=== PATIENT | female | born 1990 | race Caucasian/White ===

== ENCOUNTER 2021-12-26 09:40 | Emergency (ER) | payer OTHER ==
[2021-12-26 09:55] VITALS: BMI 28.3
[2021-12-26 10:52] LABS: EPI CELLS 17 /uL (0-25.1); HYALINE CASTS 1 /uL (0-3.1); PH,URINE 7.5 (5.0-8.0); URINE APPEARANCE TURBID; URINE BACTERIA 220 /uL (0-1359); URINE BILIRUBIN NEGATIVE (NEGATIVE); URINE COLOR YELLOW; URINE GLUCOSE (UA) NEGATIVE (NEGATIVE); URINE KETONE NEGATIVE (NEGATIVE); URINE LEUK ESTERASE NEGATIVE (NEGATIVE); URINE NITRITE NEGATIVE (NEGATIVE); URINE PROTEIN NEGATIVE (NEGATIVE); URINE RBC 9 /uL (0-23.9); URINE UROBILINOGEN 0.2 mg/dL (0.2-1.0); URINE WBC 9 /uL (0-25.8)
[2021-12-26 11:08] VITALS: BP 112/74; PULSE 83; TEMP 99
== END 2021-12-26 11:34 | disposition home or self-care (01) ==
LOC: JER 09:40
DX: O26.852 Spotting complicating pregnancy, second trimester (principal); Z3A.17 17 weeks gestation of pregnancy
CPT/HCPCS: 76815; 81003; 84703; 87086; 99284-25

== ENCOUNTER 2022-03-04 15:55 | Observation (INO) | payer OTHER ==
[2022-03-04] MEDS: DEXTROSE 5%-LACTATED RINGERS 1,000 ML IV SCH (19:30)
[2022-03-04] MEDS: ACETAMINOPHEN 325 MG TABLET (FP) PO PRN (20:00)
[2022-03-04 20:10] LABS: PH,URINE 6.5 (5.0-8.0); URINE APPEARANCE CLEAR; URINE BILIRUBIN NEGATIVE (NEGATIVE); URINE COLOR YELLOW; URINE GLUCOSE (UA) NEGATIVE (NEGATIVE); URINE KETONE NEGATIVE (NEGATIVE); URINE LEUK ESTERASE NEGATIVE (NEGATIVE); URINE NITRITE NEGATIVE (NEGATIVE); URINE PROTEIN NEGATIVE (NEGATIVE); URINE UROBILINOGEN 0.2 mg/dL (0.2-1.0)
[2022-03-04] MEDS ORDERED: ACETAMINOPHEN 325 MG TABLET (FP) ONE (20:37)
[2022-03-04 20:52] LABS: BASO % 0.2 % (0-2.0); EOS % 1.2 % (0-4.5); HEMOGLOBIN 11.2 GM/dL (10.7-15.3); LYMPH % 20.2 % (8-40); MCH 31.8 pg (25.7-33.7); MEAN CELL VOLUME 93.6 fl (80-96); MEAN PLT VOLUME 6.9 fl (7.5-11.1); MONO % 6.1 % (3.8-10.2); NEUT % 72.3 % (42.8-82.8); PLATELET COUNT 208 10^3/uL (134-434); RBC 3.53 M/mm3 (3.60-5.2); RDW 13.4 % (11.6-15.6)
[2022-03-04 20:56] LABS: INR 0.98 (0.83-1.09); PROTHROMBIN TIME (PATIENT) 11.3 SEC (9.7-13.0)
[2022-03-04 21:06] LABS: CALCIUM 8.2 mg/dL (8.5-10.1)
[2022-03-04 21:07] LABS: ALBUMIN 2.7 g/dl (3.4-5.0); BLOOD UREA NITROGEN 7.2 mg/dL (7-18)
[2022-03-04 21:10] LABS: CREATININE 0.5 mg/dL (0.55-1.3)
[2022-03-04 21:11] LABS: TOT PROT 5.7 g/dl (6.4-8.2)
[2022-03-04 21:12] LABS: BILIRUBIN,TOTAL 0.3 mg/dL (0.2-1)
[2022-03-04 23:57] VITALS: BMI 30.2
[2022-03-05] MEDS: ACETAMINOPHEN 325 MG TABLET (FP) PO PRN (03:15)
[2022-03-05] MEDS ORDERED: ACETAMINOPHEN 325 MG TABLET (FP) ONE ×2 (03:17→11:17)
[2022-03-05] MEDS: DEXTROSE 5%-LACTATED RINGERS 1,000 ML IV SCH (03:55)
[2022-03-05 05:14] VITALS: TEMP 97.8
[2022-03-05 09:01] VITALS: BP 128/81; PULSE 72
== END 2022-03-05 12:10 | disposition home or self-care (01) ==
LOC: JER 15:55 → JLDR 23:00
PROVIDERS: ADMIT Obstetrics & Gynecology Maternal & Fetal Medicine; ATTEND Obstetrics & Gynecology Maternal & Fetal Medicine
PROC: 3E0337Z Introduction of Electrolytic and Water Balance Substance into Peripheral Vein, Percutaneous Approach (ICD-10-PCS; principal; 2022-03-04)
DX: O36.8120 Decreased fetal movements, second trimester, not applicable or unspecified (principal); V48.0XXA Car driver injured in noncollision transport accident in nontraffic accident, initial encounter; Y93.89 Activity, other specified; Y92.410 Unspecified street and highway as the place of occurrence of the external cause; Z3A.26 26 weeks gestation of pregnancy; I10 Essential (primary) hypertension
CPT/HCPCS: 36415; 76801-TC; 80053; 81003; 85025; 85610; 86850; 86900; 86901; 99285-25; C9803-CS; G0378; U0003; U0005

== ENCOUNTER 2022-05-31 11:07 | Inpatient (IN) | payer OTHER ==
[2022-05-31 13:28] LABS: BASO % 0.3 % (0-2.0); EOS % 0.8 % (0-4.5); HEMATOCRIT 36.6 % (32.4-45.2); HEMOGLOBIN 12.4 GM/dL (10.7-15.3); LYMPH % 15.5 % (8-40); MCHC 33.8 g/dl (32.0-36.0); MEAN CELL VOLUME 91.8 fl (80-96); MEAN PLT VOLUME 7.3 fl (7.5-11.1); MONO % 6.9 % (3.8-10.2); NEUT % 76.5 % (42.8-82.8); PLATELET COUNT 217 10^3/uL (134-434); RBC 3.98 M/mm3 (3.60-5.2); RDW 13.9 % (11.6-15.6); WHITE BLOOD COUNT 7.5 K/mm3 (4.0-10.0)
[2022-05-31 13:33] LABS: INR 0.99 (0.83-1.09); PROTHROMBIN TIME (PATIENT) 11.4 SEC (9.7-13.0)
[2022-05-31 13:36] LABS: ACTIVATED PTT 28.1 SECONDS (25.2-36.5)
[2022-05-31 13:43] LABS: CALCIUM 8.3 mg/dL (8.5-10.1)
[2022-05-31 13:44] LABS: ALBUMIN 2.7 g/dl (3.4-5.0)
[2022-05-31 13:47] LABS: CREATININE 0.5 mg/dL (0.55-1.3)
[2022-05-31 13:48] LABS: BILIRUBIN,TOTAL 0.5 mg/dL (0.2-1)
[2022-05-31] MEDS ORDERED: LACTATED RINGERS SOLUTION 1,000 ML IV SCH (14:00)
[2022-05-31 17:02] VITALS: BMI 37.5
[2022-05-31] MEDS ORDERED: DINOPROSTONE 10 MG VAGINAL SUPPOSITORY VG ONE (18:21)
[2022-05-31] MEDS: DEXTROSE 5%-LACTATED RINGERS 1,000 ML IV SCH (18:35)
[2022-05-31 23:20] LABS: HIV INTERPRETATION NEGATIVE (NEGATIVE)
[2022-06-01] MEDS: DEXTROSE 5%-LACTATED RINGERS 1,000 ML IV SCH (02:20)
[2022-06-01] MEDS ORDERED: BUTORPHANOL TARTRATE 2 MG/ML VIAL ONE (03:54)
[2022-06-01] MEDS ORDERED: BUTORPHANOL TARTRATE 1 MG/ML VIAL IVPB ONE (03:55)
[2022-06-01] MEDS ORDERED: PROMETHAZINE HCL 25 MG/1 ML VIAL IVPB ONE (03:55)
[2022-06-01] MEDS ORDERED: OXYTOCIN 30 UNITS in 0.9% NS 30 UNIT/500 ML INFUS.BAG IVPB SCH (06:30)
[2022-06-01 08:02] LABS: BASO % 0.3 % (0-2.0); HEMATOCRIT 35.2 % (32.4-45.2); HEMOGLOBIN 12.1 GM/dL (10.7-15.3); LYMPH % 16.4 % (8-40); MCH 31.5 pg (25.7-33.7); MCHC 34.4 g/dl (32.0-36.0); MEAN CELL VOLUME 91.5 fl (80-96); MEAN PLT VOLUME 7.4 fl (7.5-11.1); MONO % 7.4 % (3.8-10.2); NEUT % 74.9 % (42.8-82.8); PLATELET COUNT 192 10^3/uL (134-434); RBC 3.84 M/mm3 (3.60-5.2); WHITE BLOOD COUNT 8.6 K/mm3 (4.0-10.0)
[2022-06-01] MEDS ORDERED: FENTANYL/BUPIVACAINE/NS/PF - PCEA - 50 ML DISP.SYRIN EP ONE (12:35)
[2022-06-01] MEDS ORDERED: SODIUM CHLORIDE 500 ML IV STA (12:38)
[2022-06-01] MEDS ORDERED: NALOXONE HCL 0.4 MG/ML VIAL IVPUSH PRN (13:14)
[2022-06-01] MEDS ORDERED: FENTANYL/BUPIVACAINE/NS/PF - PCEA - 50 ML DISP.SYRIN EP SCH (13:15)
[2022-06-01] MEDS ORDERED: OXYTOCIN 20 UNITS in 0.9% NS 20 UNIT/1,000 ML INFUS.BAG IV ONE (13:32)
[2022-06-01] MEDS ORDERED: LIDOCAINE HCL 1% PRESERVATIVE FREE - 30ML VIAL ONE (13:32)
[2022-06-01] MEDS ORDERED: ACETAMINOPHEN 325 MG TABLET (FP) PO PRN (14:14)
[2022-06-01] MEDS ORDERED: BENZOCAINE 20% 57 GM BOTTLE TP PRN (14:14)
[2022-06-01] MEDS ORDERED: BENZOCAINE 28 GM HEMORRHOIDAL OINTMENT TP PRN (14:14)
[2022-06-01] MEDS ORDERED: BISACODYL 10 MG SUPP.RECT RC PRN (14:14)
[2022-06-01] MEDS ORDERED: WITCH HAZEL 50% (TUCKS) 40 PAD/JAR PAD TP PRN (14:14)
[2022-06-01] MEDS ORDERED: OXYTOCIN 20 UNITS in 0.9% NS 20 UNIT/1,000 ML INFUS.BAG IV SCH (14:15)
[2022-06-01 14:47] LABS: CORD BASE EXCESS -3.6 mmol/L (0-2); CORD HCO3 22.8 mmHg (20-29); CORD PCO2 45.6 mmHg (30-78); CORD pH 7.316 (7.14-7.44)
[2022-06-01 14:51] LABS: CORD HCO3 22.3 mmHg (20-29); CORD PCO2 49.5 mmHg (30-78); CORD pH 7.272 (7.14-7.44)
[2022-06-01] MEDS ORDERED: ACETAMINOPHEN 325 MG TABLET (FP) ONE (14:57)
[2022-06-01] MEDS: IBUPROFEN 600 MG TABLET (FP) PO PRN (23:34)
[2022-06-02 06:47] LABS: BASO % 0.2 % (0-2.0); EOS % 1.4 % (0-4.5); HEMATOCRIT 33.2 % (32.4-45.2); HEMOGLOBIN 11.5 GM/dL (10.7-15.3); LYMPH % 19.3 % (8-40); MCH 31.9 pg (25.7-33.7); MCHC 34.8 g/dl (32.0-36.0); MEAN CELL VOLUME 91.7 fl (80-96); MEAN PLT VOLUME 7.6 fl (7.5-11.1); MONO % 7.9 % (3.8-10.2); NEUT % 71.2 % (42.8-82.8); PLATELET COUNT 158 10^3/uL (134-434); RBC 3.62 M/mm3 (3.60-5.2); RDW 13.8 % (11.6-15.6); WHITE BLOOD COUNT 8.3 K/mm3 (4.0-10.0)
[2022-06-02] MEDS ORDERED: SENNOSIDES/DOCUSATE COMBO (SENNA PLUS) TABLET (UD) PO PRN (22:00)
[2022-06-03] MEDS: IBUPROFEN 600 MG TABLET (FP) PO PRN (10:01)
[2022-06-03 10:19] VITALS: BP 119/78; PULSE 71; RESP 16; TEMP 98.4
== END 2022-06-03 12:45 | disposition home or self-care (01) | DRG 560 ==
LOC: JDEL 11:07 → JLDR 14:05 → J3W 06-01 15:45
PROVIDERS: ADMIT Obstetrics & Gynecology Maternal & Fetal Medicine; ATTEND Obstetrics & Gynecology Maternal & Fetal Medicine
PROC: 3E0P7VZ Introduction of Hormone into Female Reproductive, Via Natural or Artificial Opening (ICD-10-PCS; 2022-05-31)
PROC: 10E0XZZ Delivery of Products of Conception, External Approach (ICD-10-PCS; principal; 2022-06-01)
PROC: 10907ZC Drainage of Amniotic Fluid, Therapeutic from Products of Conception, Via Natural or Artificial Opening (ICD-10-PCS; 2022-06-01)
DX: O10.92 Unspecified pre-existing hypertension complicating childbirth (principal); O99.413 Diseases of the circulatory system complicating pregnancy, third trimester; I49.8 Other specified cardiac arrhythmias; O99.214 Obesity complicating childbirth; E66.9 Obesity, unspecified; O77.0 Labor and delivery complicated by meconium in amniotic fluid; Z3A.39 39 weeks gestation of pregnancy; Z37.0 Single live birth
CPT/HCPCS: 36415; 36600; 59409; 80053; 82803; 85025; 85610; 85730; 86780; 86850; 86900; 86901; 87389; 88307-TC; C9803-CS; U0003; U0005

== ENCOUNTER 2025-07-02 14:45 | Emergency (ER) | payer OTHER ==
[2025-07-02 14:58] VITALS: TEMP 97.6; BMI 27.4
[2025-07-02] MEDS ORDERED: ONDANSETRON 4 MG/2 ML VIAL ONE ×2 (15:22→17:06)
[2025-07-02] MEDS: SODIUM CHLORIDE 0.9% 500 ML INFUS.BAG IV ONE (15:33)
[2025-07-02] MEDS: ONDANSETRON 4 MG/2 ML VIAL IVPUSH ONE ×2 (15:33→17:12)
[2025-07-02 15:40] LABS: ABSOLUTE IMMATURE GRANULOCYTES 0.02 x10^3/uL (0.0-0.031); BASOPHILS # 0.03 x10^3/uL (0.01-0.08); EOSINOPHIL % 1.4 % (0.7-5.8); EOSINOPHILS # 0.12 x10^3/uL (0.04-0.36); MCHC 33.3 g/dl (32.2-35.5); MEAN CELL VOLUME 91.1 fl (79.4-94.8); MEAN PLT VOLUME 9.2 fl (9.4-12.3); MONOCYTE # 0.43 x10^3/uL (0.24-0.86); MONOCYTE % 5.1 % (4.7-12.5); RDW 12.0 % (12.1-16.8)
[2025-07-02] MEDS ORDERED: METOCLOPRAMIDE HCL INJECTION 10 MG/2 ML VIAL ONE (15:46)
[2025-07-02] MEDS: METOCLOPRAMIDE HCL INJECTION 10 MG/2 ML VIAL IVPUSH ONE (15:52)
[2025-07-02 16:01] LABS: GLUCOSE,RANDOM 98.0 mg/dL (74-106); TOT PROT 8.4 g/dl (6.4-8.2)
[2025-07-02 16:02] LABS: CO2 24.0 mmol/L (21-32)
[2025-07-02 16:04] LABS: ALK PHOS 65.0 U/L (40-150)
[2025-07-02 16:06] LABS: SGOT/AST 38.0 U/L (5-34); SGPT/ALT 37.0 U/L (0-55)
[2025-07-02 16:07] LABS: CREATININE 0.82 mg/dL (0.55-1.3)
[2025-07-02 16:29] LABS: HIV INTERPRETATION NEGATIVE (NEGATIVE)
[2025-07-02 16:30] LABS: HCV DIAGNOSTIC IN-HOUSE W/RFLX NON-REACTIVE (NONREACTIVE)
[2025-07-02] MEDS: LACTATED RINGERS SOLUTION 1000 ML INFUS.BAG IV ONE (18:38)
[2025-07-02] MEDS ORDERED: HALOPERIDOL LACTATE 5 MG/ML ONE (18:57)
[2025-07-02] MEDS: HALOPERIDOL LACTATE 5 MG/ML IM ONE (19:02)
[2025-07-02 20:24] LABS: COCAINE, UR NEGATIVE (NEGATIVE)
[2025-07-02 20:25] LABS: METHADONE, UR NEGATIVE (NEGATIVE); PHENCYCLIDINE,URINE NEGATIVE (NEGATIVE); URINE BARBITURATES NEGATIVE (NEGATIVE); URINE BENZODIAZEPINES NEGATIVE (NEGATIVE)
[2025-07-02 20:35] LABS: OPIATES, URI NEGATIVE (NEGATIVE); URINE AMPHETAMINES NEGATIVE (NEGATIVE)
[2025-07-02 20:44] LABS: URINE APPEARANCE CLEAR; URINE BILIRUBIN NEGATIVE (NEGATIVE); URINE COLOR YELLOW; URINE GLUCOSE (UA) NEGATIVE (NEGATIVE); URINE KETONE 2+ (NEGATIVE); URINE LEUK ESTERASE NEGATIVE (NEGATIVE); URINE NITRITE NEGATIVE (NEGATIVE); URINE PROTEIN NEGATIVE (NEGATIVE); URINE UROBILINOGEN 0.2 mg/dL (0.2-1.0)
[2025-07-02 22:18] VITALS: BP 111/65; PULSE 55; RESP 16
== END 2025-07-02 22:19 | disposition home or self-care (01) ==
LOC: JER 14:45
PROC: 3E033GC Introduction of Other Therapeutic Substance into Peripheral Vein, Percutaneous Approach (ICD-10-PCS; principal; 2025-07-02)
PROC: 3E033GC Introduction of Other Therapeutic Substance into Peripheral Vein, Percutaneous Approach (ICD-10-PCS; 2025-07-02)
PROC: 3E033GC Introduction of Other Therapeutic Substance into Peripheral Vein, Percutaneous Approach (ICD-10-PCS; 2025-07-02)
PROC: 3E023GC Introduction of Other Therapeutic Substance into Muscle, Percutaneous Approach (ICD-10-PCS; 2025-07-02)
DX: F12.90 Cannabis use, unspecified, uncomplicated (principal); R11.2 Nausea with vomiting, unspecified; R19.7 Diarrhea, unspecified; R10.9 Unspecified abdominal pain; R00.1 Bradycardia, unspecified
CPT/HCPCS: 36415; 74177-TC; 80053; 80307; 81003; 83690; 83735; 84703; 85025; 86803; 87086; 87389; 87637-QW; 93005; 93010; 96372; 96374; 96375; 96376; 99285-25